=== PATIENT | male | born 1965 | race Caucasian/White ===

== ENCOUNTER 2022-10-06 21:42 | Outpatient (CLI) | payer BC, SELFPAY | END 2022-10-06 21:43 | disposition home or self-care (01) | LOC: AMB 10-15 19:32 | PROVIDERS: PCP Physician Assistant Medical; Visit Provider Family Medicine | DX: F41.0 Panic disorder [episodic paroxysmal anxiety] (principal) | CPT/HCPCS: A0425; A0429 ==

== ENCOUNTER 2022-10-06 23:04 | Emergency (ER) | payer BC, SELFPAY ==
[2022-10-06 23:12] VITALS: BP 149/105; PULSE 82; RESP 16; TEMP 36.3; O2SAT 90; BMI 29.5
--- NOTE | 2022-10-07 00:33 | ED_ITS ---
HPI - General Adult General Chief complaint: Anxiety Stated complaint: anxiety Time Seen by Provider: 10/07/22 00:18 Source: patient and family Mode of arrival: EMS History of Present Illness HPI narrative: 56-year-old male with a 30 year history of anxiety disorder presents to the emergency department by EMS because of a panic attack. Reports that he was feeling a little anxious [place], he took a 0.5 mg of clonazepam which he does on average a couple of times per month due to panic attacks. He reports that he sat down in starting some [place] fries and he felt panic attack coming on. It had only been a few minutes after he had taken the clonazepam per his report. He tried taking a 2nd clonazepam tablets and still felt panicky. There was no loss of consciousness, no falls, no feelings of arrhythmia. No intoxication, no seizures. He felt like he was unable to calm down and called EMS for assistance. They administered 2 mg of nasal Ativan and he has been feeling significantly better since. We were quite busy in the emergency department and he is evaluated about 1 hour after arrival and says that he is feeling better and has no additional concerns at this time. He admits to sporadic use of an unknown dose of Effexor. Has not recently had any medication adjustments recently. He has previously been prescribed lorazepam or, uncertain why he switch to clonazepam. He uses this about once monthly on average. He is not currently in counseling. He states that his past medical history is benign, does not have long-term health problems besides anxiety and hypertension. ROS notable for a panic symptoms as above, otherwise denies times 12 systems. Related Data Home Medications Medication Instructions Recorded Confirmed clonazepam 0.5 mg tablet 0.5 mg PO BID 10/06/22 10/06/22 lisinopril 10 mg tablet 10 mg PO DAILY 10/06/22 10/06/22 venlafaxine 37.5 mg 37.5 mg PO DAILY 10/06/22 10/06/22 capsule,extended release 24 hr Allergies Allergy/AdvReac Type Severity Reaction Status Date / Time shellfish derived Allergy Unknown Verified 10/07/22 00:25 amlodipine AdvReac [place] Verified 10/07/22 00:25 PFSH PFSH Social History Smoking Status: Never smoker How often do you have a drink containing alcohol: 2-4 times a month AUDIT-C Alcohol total score: 2 Non-prescribed substance use: denies use Exam Const: Vital Signs, click to edit/add: Vital Signs - 24 hr 10/06/22 23:12 Temperature 97.4 F L Pulse Rate [Left P ulse Oximeter] 82 Respiratory Rate 16 Blood Pressure [Ri ght Upper Arm] 149/105 H Pulse Oximetry 90 Oxygen Delivery Me thod Room Air Documenting provider has reviewed patient's vital signs: yes Common normals: no apparent distress and alert General appearance: cooperative, comfortable and well kempt HENMT: Common normals: normocephalic Head and scalp: normocephalic Throat: posterior oropharynx normal Eye: Common normals: conjunctivae normal General eye: normal appearance of both eyes Conjunctiva: conjunctiva(e) normal Resp: Common normals: normal respiratory effort, no use of accessory muscles and clear to auscultation bilaterally Effort & inspection: able to speak in complete sentences Auscultation: clear to auscultation bilaterally Cardio: Common normals: regular rate, regular rhythm, S1 normal heart sound, S2 normal heart sound and no murmurs Rate: regular rate Rhythm: regular rhythm Heart sounds: S1 normal and S2 normal Neuro: Sensorium/orientation: alert Speech: speech normal Gait (neuro): normal gait Psych: Common normals: thought process normal and speech normal Appearance: well kempt Activity/motor behavior: appropriate eye contact Speech: normal speech Mood and affect: euthymic mood Thought process: normal thought process Thought content: normal thought content Attention/concentration: attention grossly intact Memory/cognition: memory grossly intact Insight: insight good Judgement: judgment good Skin: Common normals: no rashes or lesions noted General skin exam: no rashes or lesions noted Course Course Hospital Course: Longstanding history of anxiety disorder, longstanding history of panic disorder. No evidence of arrhythmia, medical complication or other abnormality today. No intoxication. No drug use. Symptoms have resolved with use of benzodiazepine. Recommend discharge. He was agreeable to this. Alarm symptoms reviewed. Discussed long-term therapy verses on demand therapy. He verbalizes understanding and knowledge of the difference of the 2. Encourage primary care follow-up to titrate his SNRI or transition on to longer acting SSRI since he does not take this regularly. He would likely be a good candidate for Luvox. He verbalizes understanding and agreement. Vital Signs Vital signs: Initial Vital Signs Temperature 97.4 F L 10/06/22 23:12 Temperature Source Temporal Artery Scan 10/06/22 23:12 Pulse Rate 82 10/06/22 23:12 Respiratory Rate 16 10/06/22 23:12 Blood Pressure 149/105 H 10/06/22 23:12 Blood Pressure Mean 119 H 10/06/22 23:12 Blood Pressure Position Semi-Fowlers 10/06/22 23:12 Pulse Oximetry 90 10/06/22 23:12 Oxygen Delivery Method Room Air 10/06/22 23:12 Vital Signs Temperature 97.4 F L 10/06/22 23:12 Pulse Rate 82 10/06/22 23:12 Respiratory Rate 16 10/06/22 23:12 Blood Pressure 149/105 H 10/06/22 23:12 Pulse Oximetry 90 10/06/22 23:12 Oxygen Delivery Method Room Air 10/06/22 23:12 Temperature 97.4 F L 10/06/22 23:12 Pulse Rate 82 10/06/22 23:12 Respiratory Rate 16 10/06/22 23:12 Blood Pressure 149/105 H 10/06/22 23:12 Pulse Oximetry 90 10/06/22 23:12 Oxygen Delivery Method Room Air 10/06/22 23:12 Discharge Plan Discharge Clinical Impression: Panic disorder Patient Disposition: Home w/ Parent or Adult Condition: Improved Instructions: Panic Attack (ED) Additional Instructions: I am glad your panic attack has improved. I do recommend he make a follow-up appoint with her primary care doctor to discuss an alternative to your Effexor if the side effects are bothersome. Your using the clonazepam correctly, but as we discussed, it does take longer to kick in than other medications. There are no signs of a medical complication today. Consider making an appointment for counseling to learn more strategies to help pull your self out of panic attacks. I do not recommend driving until after 6:00 a.m. due to the number of medications you have taken. Activity Level: No Restrictions Discharge Diet: Regular Prescriptions: No Action venlafaxine 37.5 mg capsule,extended release 24hr 37.5 mg PO DAILY clonazepam 0.5 mg tablet 0.5 mg PO BID lisinopril 10 mg tablet 10 mg PO DAILY Stand Alone Forms: [employer] Info Instructions
--- NOTE | 2022-10-07 00:43 | PC.NURSE ---
patient and stated understanding to DC instructions. no further questions
== END 2022-10-07 01:29 | disposition home or self-care (01) ==
LOC: ED 10-07 00:47
PROVIDERS: Emergency Provider Family Medicine; PCP Physician Assistant Medical
DX: F41.0 Panic disorder [episodic paroxysmal anxiety] (principal)
CPT/HCPCS: 99282